=== PATIENT | female | born 1990 | race Caucasian/White ===

== ENCOUNTER 2017-09-16 13:28 | Emergency (ER) | payer OTHER ==
[~2017-09-16] VITALS: Ht 149.9 cm; Wt 52.2 kg
[2017-09-16 13:35] VITALS: Ht 149.9 cm; Wt 52.2 kg
[2017-09-16 16:37] VITALS: BP 116/59
== END 2017-09-16 16:37 | disposition home or self-care (01) ==
LOC: ED 13:28
DX: S93.401A Sprain of unspecified ligament of right ankle, initial encounter (principal); V98.8XXA Other specified transport accidents, initial encounter; Y93.89 Activity, other specified; Y92.89 Other specified places as the place of occurrence of the external cause; Y99.8 Other external cause status
CPT/HCPCS: 90715; J1885